=== PATIENT | female | born 1965 | race Caucasian/White ===

== ENCOUNTER 2018-06-02 04:30 | Emergency (ER) | payer BC ==
[2018-06-02] MEDS ORDERED: Ketorolac 10 MG Tab PO ONE (04:31)
[2018-06-02] MEDS ORDERED: Sodium Chloride 0.9% 1,000 ML IV ONE (05:08)
[2018-06-02] MEDS ORDERED: Ondansetron 4 MG/2 ML SDV IVPUSH PRN (05:10)
[2018-06-02] MEDS ORDERED: fentaNYL 100 MCG/2 ML SDV IVPUSH PRN (05:10)
--- NOTE | 2018-06-02 05:18 | EDM.PDOC ---
ED HPI GENERAL MEDICAL PROBLEM - General Chief Complaint: Abdominal Pain Stated Complaint: HAVING ABDOMINAL PAIN. Time Seen by Provider: 06/02/18 05:06 Source of Information: Reports: Patient History Limitations: Reports: No Limitations - History of Present Illness INITIAL COMMENTS - FREE TEXT/NARRATIVE: Courtney is a 52 year old female who presents to the ED with c/o severe LLQ abdominal pain. Reports pain woke her from sleep at 0245 this morning. Reports pain has been constant since but does increase with sharp pains intermittently. Reports pain is mostly in her left lower area of her abdomen, but does radiate across to the right at times. Has been a little nauseated. Denies any fever, vomiting, diarrhea, constipation, flank pain, dysuria, urgency, blood in urine. Reports had colonoscopy in 2016 which was normal. Denies any history of kidney stones, diverticulosis. Onset: Today Onset Date: 06/02/18 Onset Time: 02:45 Left Lower Abdominal Pain Score (Numeric/FACES): 9 - Related Data Allergies Allergy/AdvReac Type Severity Reaction Status Date / Time Sulfa (Sulfonamide Allergy Hives Verified 06/02/18 04:49 Antibiotics) Home Meds: Home Meds Ketorolac [Toradol] 10 mg PO Q6H PRN #20 tab 06/02/18 [Rx] Nitrofurantoin Macrocrystal [Macrodantin] 100 mg PO DAILY #7 capsule 06/02/18 [ Rx] Tamsulosin HCl [Flomax] 0.4 mg PO DAILY #14 cap.er.24h 06/02/18 [Rx] Past Medical History Cardiovascular History: Reports: High Cholesterol - Past Surgical History HEENT Surgical History: Reports: Myringotomy w Tube(s) GI Surgical History: Reports: Cholecystectomy Female Surgical History: Reports: Tubal Ligation Social & Family History - Tobacco Use Smoking Status *Q: Never Smoker Second Hand Smoke Exposure: No ED ROS GENERAL - Review of Systems Review Of Systems: See Below Constitutional: Denies: Fever, Chills, Malaise, Weakness, Fatigue Respiratory: Reports: No Symptoms. Denies: Shortness of Breath, Cough Cardiovascular: Reports: No Symptoms. Denies: Chest Pain, Lightheadedness GI/Abdominal: Reports: Abdominal Pain, Nausea. Denies: Black Stool, Bloody Stool, Constipation, Diarrhea, Vomiting : Reports: Frequency. Denies: Dysuria, Hematuria, Urgency Musculoskeletal: Denies: Back Pain Neurological: Reports: No Symptoms. Denies: Confusion, Dizziness, Headache, Numbness, Tingling, Weakness Psychiatric: Reports: No Symptoms ED EXAM, GI/ABD - Physical Exam Exam: See Below Exam Limited By: No Limitations General Appearance: Alert, WD/WN, Moderate Distress Head: Atraumatic, Normocephalic Neck: Normal Inspection, Supple, Non-Tender, Full Range of Motion Respiratory/Chest: No Respiratory Distress, Lungs Clear, Normal Breath Sounds, No Accessory Muscle Use, Chest Non-Tender Cardiovascular: Normal Peripheral Pulses, Regular Rate, Rhythm, No Edema, No Gallop, No JVD, No Murmur, No Rub GI/Abdominal Exam: Normal Bowel Sounds, Soft, No Distention, Tender (LLQ, suprapubic area). No: Guarding, Rigid, Rebound Back Exam: Normal Inspection, Full Range of Motion. No: CVA Tenderness (L), CVA Tenderness (R) Extremities: Normal Inspection, Normal Range of Motion, Non-Tender, Normal Capillary Refill, No Pedal Edema Neurological: Alert, Oriented, CN II-XII Intact, Normal Cognition, Normal Gait, Normal Reflexes, No Motor/Sensory Deficits Psychiatric: Normal Affect, Normal Mood Course - Vital Signs Last Recorded V/S: Last Vital Signs Temp 98.7 F 06/02/18 07:30 Pulse 78 06/02/18 07:30 Resp 20 06/02/18 07:30 BP 142/78 H 06/02/18 07:30 Pulse Ox 100 06/02/18 07:30 - Orders/Labs/Meds Orders: Active Orders 24 hr Category Date Time Status Abdomen Pelvis w Cont [CT] Stat Exams 06/02/18 05:44 Taken Labs: Laboratory Tests 06/02/18 06/02/18 06/02/18 Range/Units 05:05 05:05 05:05 WBC 8.8 (5.0-10.0) 10^3/uL RBC 4.78 (4.00-5.50) 10^6/uL Hgb 13.3 (12.0-16.0) g/dL Hct 40.4 (37.0-47.0) % MCV 84.5 (82.0-94.0) fL MCH 27.8 (27.0-32.0) pg MCHC 32.9 L (33.0-38.0) g/dL RDW Coeff of Brenna 14.0 (11.0-15.0) % Plt Count 193 (150-400) 10^3/uL Neut % (Auto) 66.8 (35-85) % Lymph % (Auto) 19.1 (10-55) % [place] % (Auto) 10.5 (0-16) % Eos % (Auto) 3.1 (0-5) % Baso % (Auto) 0.5 (0-3) % Neut # (Auto) 5.89 (1.80-7.00) 10^3/uL Lymph # (Auto) 1.68 (1.00-4.80) 10^3/uL [place] # (Auto) 0.92 H (0.00-0.80) 10^3/uL Eos # (Auto) 0.27 (0.00-0.45) 10^3/uL Baso # (Auto) 0.04 10^3/uL Sodium 139 (136-145) mEq/L Potassium 4.0 (3.5-5.0) mEq/L Chloride 103 (98-106) mEq/L Carbon Dioxide 27 (21-32) mmol/L BUN 18 (7-18) mg/dL Creatinine 1.0 (0.6-1.0) mg/dL Est Cr Clr Drug Dosing TNP Estimated GFR (MDRD) 58 L (>=60) mL/min Glucose 117 H D (75-99) mg/dL Calcium 8.8 (8.4-10.1) mg/dL Total Bilirubin 0.5 (0.0-1.0) mg/dL AST 18 (15-37) U/L ALT 24 (12-78) U/L Alkaline Phosphatase 83 (46-116) U/L C-Reactive Protein 1.8 H (0.2-0.8) mg/dL Total Protein 6.9 (6.4-8.2) g/dL Albumin 3.3 L (3.4-5.0) g/dL Amylase 30 (25-115) U/L Lipase 132 (73-393) U/L Urine Color Dark yellow (YELLOW) Urine Appearance Slightly cloudy (CLEAR) Urine pH 5.5 (4.5-8.0) Ur Specific [place] >= 1.030 H (1.003-1.020) Urine Protein 100 H (NEGATIVE) mg/dL Urine Glucose (UA) Negative (NEGATIVE) mg/dL Urine Ketones Negative (NEGATIVE) mg/dL Urine Occult Blood Large H (NEGATIVE) Urine Nitrite Negative (NEGATIVE) Urine Bilirubin Negative (NEGATIVE) Urine Urobilinogen 0.2 (0.2-1.0) EU/dL Ur Leukocyte Esterase Negative (NEGATIVE) Urine RBC >100 H (0-5) /HPF Urine WBC Not seen (0-5) /HPF Ur Squamous Epith Cells Few H (NOT SEEN) /HPF Urine Bacteria Occasional H (NOT SEEN) /HPF Meds: Medications Discontinued Medications Generic Name Dose Route Start Last Admin Trade Name Freq PRN Reason Stop Dose Admin Ceftriaxone Sodium 1 gm 06/02/18 11:16 06/02/18 11:33 Rocephin IVPUSH 06/02/18 11:17 1 gm ONETIME ONE Administration Fentanyl 25 mcg 06/02/18 05:10 06/02/18 05:23 Sublimaze IVPUSH 25 mcg Q6H PRN Administration Abdominal Pain Sodium Chloride 1,000 mls @ 999 mls/hr 06/02/18 05:08 06/02/18 05:18 Normal Saline IV 06/02/18 06:08 999 mls/hr .BOLUS ONE Administration Sodium Chloride Confirm 06/02/18 06:15 06/02/18 06:28 Normal Saline Administered 06/02/18 06:16 Not Given Dose 1,000 mls @ as directed .ROUTE .STK-MED ONE Sodium Chloride 1,000 mls @ 250 mls/hr 06/02/18 06:30 06/02/18 10:36 Normal Saline IV 250 mls/hr ASDIRECTED VANDA Administration Iopamidol 193 ml 06/02/18 09:18 06/02/18 09:21 Isovue-250 (51%) IVPUSH 06/02/18 09: 193 ml ONETIME ONE Administration Ketorolac Tromethamine 30 mg 06/02/18 05:46 06/02/18 06:15 Toradol IVPUSH 30 mg Q6H PRN Administration Pain Ketorolac Tromethamine 1 packet 06/02/18 11:16 06/02/18 11:42 Take Home: Ketorolac 10 Mg, 4 Tab Pack PO 06/02/18 11:17 1 packet ONETIME ONE Administration Ondansetron HCl 4 mg 06/02/18 05:10 06/02/18 05:19 Zofran IVPUSH 4 mg Q6H PRN Administration Nausea Tamsulosin HCl 0.4 mg 06/02/18 11:17 06/02/18 11:32 Flomax PO 06/02/18 11:18 0.4 mg ONETIME ONE Administration - Radiology Interpretation Free Text/Narrative:: CT reveals 3 mm calculi in distal left ureter, mild fat stranding of left kidney. Also shows thickened endometrium to 2.[address] Results Date: 06/02/18 CT Results Time: 10:00 - Re-Assessments/Exams Free Text/Narrative Re-Assessment/Exam: 06/02/18 05:44 Discussed lab results with patient. Does have significant amount of blood in her urine. She denies ever noticing blood in her urine. Does not have her menstrual cycle. No history of kidney stones. No CVA tenderness. Will proceed with CT urogram and keep in extended ED for pain management pending results. Patient agreeable. 06/02/18 10:[address] results with patient and recommendations for discharge and follow up. Patient and spouse verbalize understand and are agreeable to plan. Will discharge home. Departure - Departure Time of Disposition: 11:11 Disposition: Home, Self-Care 01 Condition: Good Clinical Impression: Calculus of distal left ureter - Discharge Information *PRESCRIPTION DRUG MONITORING PROGRAM REVIEWED*: Not Applicable *COPY OF PRESCRIPTION DRUG MONITORING REPORT IN PATIENT RUY: Not Applicable Prescriptions: Ketorolac [Toradol] 10 mg PO Q6H PRN #20 tab PRN Reason: Abdominal Pain Nitrofurantoin Macrocrystal [Macrodantin] 100 mg PO DAILY #7 capsule Tamsulosin HCl [Flomax] 0.4 mg PO DAILY #14 cap.er.24h Instructions: Kidney Stones, [id number] Referrals: PCP,None [Primary Care Provider] - Forms: ED Department Discharge Additional Instructions: Flomax daily x 14 days Nitrofurantoin daily x 7 days (prophylactic antibiotic) Toradol 1 tab every 6 hours as needed for pain. May alternate with Tylenol 1000 mg every 6 hours as needed. Rest and push fluids the next few days. Also discussed need for Pelvic US in future due to thickened endometrium. This can be done with yearly physical in August. Follow up in 2 weeks for recheck with provider of your choice. Will recheck urine at that time. Follow up sooner than that if any issues. - My Orders Last 24 Hours: My Active Orders 06/02/18 05:44 Abdomen Pelvis w Cont [CT] Stat - Assessment/Plan Last 24 Hours: My Active Orders 06/02/18 05:44 Abdomen Pelvis w Cont [CT] Stat
[2018-06-02 05:25] LABS: CHLORIDE,CL 103 mEq/L (98-106); SODIUM,NA 139 mEq/L (136-145)
[2018-06-02] MEDS ORDERED: Ketorolac 30 MG/ML SDV IVPUSH PRN (05:46)
[2018-06-02] MEDS: Sodium Chloride 0.9% 1,000 ML ONE ×2 (06:20→06:28)
[2018-06-02] MEDS: Sodium Chloride 0.9% 1,000 ML IV SCH ×2 (06:25→10:36)
[2018-06-02 08:06] VITALS: BP 142/78
[2018-06-02] MEDS ORDERED: Iopamidol 510 MG/ML 50 ML SDV IVPUSH ONE (09:18)
[2018-06-02] MEDS ORDERED: cefTRIAXone 1 GM Vial IVPUSH ONE (11:16)
[2018-06-02] MEDS ORDERED: Take Home: Ketorolac 10 MG Tab, 4 Tab Pack PO ONE (11:16)
[2018-06-02] MEDS ORDERED: Tamsulosin 0.4 MG Cap.ER PO ONE (11:17)
== END 2018-06-02 11:58 | disposition home or self-care (01) ==
LOC: CC.ED 04:30
DX: N20.1 Calculus of ureter (principal); E78.00 Pure hypercholesterolemia, unspecified; Z88.2 Allergy status to sulfonamides; Z79.899 Other long term (current) drug therapy
CPT/HCPCS: 36415; 74177; 80053; 81001; 82150; 83690; 85025; 86140; 96361; 96374; 96375; 99284-25; A9270-GY; J0696; J1885; J2405; J3010; J7030; Q9957

== ENCOUNTER 2019-07-24 14:34 | Emergency (ER) | payer BC ==
[2019-07-24 15:04] LABS: CHLORIDE,CL 104 mEq/L (98-106); SODIUM,NA 140 mEq/L (136-145)
[2019-07-24 15:07] VITALS: PULSE 94
[2019-07-24] MEDS: Pantoprazole 40 MG Vial IVPUSH SCH (15:44)
[2019-07-24] MEDS: Alum Hydrox/Mag Hydrox/Simeth 30 ML, Lidocaine 2% 15 ML PO ONE ×2 (15:44)
[2019-07-24 15:45] VITALS: BP 157/89
--- NOTE | 2019-07-24 16:04 | EDM.PDOC ---
ED HPI GENERAL MEDICAL PROBLEM - General Chief Complaint: Chest Pain Stated Complaint: cp Time Seen by Provider: 07/24/19 15:12 Source of Information: Reports: Patient History Limitations: Reports: No Limitations - History of Present Illness INITIAL COMMENTS - FREE TEXT/NARRATIVE: States that she just has not felt well. She has nausea and general overall feeling of not feeling well. She had 2:30 apppt with Trena today and on the way in was feeling worse so came to the ER instead. Has pain in the mid epigastric area up into the chest. Has had some heartburn with it. has history of reflux also. Onset: Gradual Location: Reports: Chest, Abdomen Quality: Reports: Dull - Related Data Allergies Allergy/AdvReac Type Severity Reaction Status Date / Time Sulfa (Sulfonamide Allergy Hives Verified 07/24/19 14:36 Antibiotics) Home Meds: Home Meds Megestrol [Megace] 20 mg PO DAILY 07/24/19 [History] Past Medical History Cardiovascular History: Reports: High Cholesterol Endocrine/Metabolic History: Reports: Other (See Below) Other Endocrine/Metabolic History: nodules for thyroid - Past Surgical History HEENT Surgical History: Reports: Myringotomy w Tube(s) GI Surgical History: Reports: Cholecystectomy Social & Family History - Tobacco Use Smoking Status *Q: Never Smoker - Caffeine Use Caffeine Use: Reports: None - Recreational Drug Use Recreational Drug Use: No ED ROS GENERAL - Review of Systems Review Of Systems: See Below Constitutional: Reports: Weight Gain. Denies: Fever, Chills, Fatigue HEENT: Reports: No Symptoms Respiratory: Reports: No Symptoms Cardiovascular: Reports: Other (saee HPI) GI/Abdominal: Reports: Nausea. Denies: Vomiting : Reports: No Symptoms Musculoskeletal: Reports: No Symptoms Skin: Reports: No Symptoms Neurological: Reports: No Symptoms ED EXAM, GI/ABD - Physical Exam Exam: See Below Exam Limited By: No Limitations General Appearance: Alert, WD/WN, No Apparent Distress Ears: Normal External Exam, Normal [place] Nose: Normal Inspection, Normal Mucosa Throat/Mouth: Normal Inspection, Normal Oropharynx Head: Atraumatic, Normocephalic Neck: Normal Inspection, Supple, Non-Tender, Full Range of Motion Respiratory/Chest: No Respiratory Distress, Lungs Clear, Normal Breath Sounds Cardiovascular: Normal Peripheral Pulses, Regular Rate, Rhythm GI/Abdominal Exam: Normal Bowel Sounds, Soft, Tender (to the midepigastric area with palpation.) Extremities: Normal Inspection, No Pedal Edema Neurological: Alert, Oriented Psychiatric: Flat Affect Skin Exam: Warm, Dry, Intact Course - Vital Signs Last Recorded V/S: Last Vital Signs Temp 97.0 F 07/24/19 14:37 Pulse 94 07/24/19 15:00 Resp 16 07/24/19 15:44 BP 157/89 H 07/24/19 15:44 Pulse Ox 96 07/24/19 15:44 - Orders/Labs/Meds Orders: Active Orders 24 hr Category Date Time Status Chest 2V [CR] Stat Exams 07/24/19 14:41 Taken Pantoprazole [ProTONIX IV] Med 07/24/19 15:30 Active 40 mg IVPUSH Q24H Medication Orders Pantoprazole Sodium (Protonix Iv) 40 mg IVPUSH Q24H VANDA Last Admin: 07/24/19 15:44 Dose: 40 mg Labs: Laboratory Tests 07/24/19 07/24/19 07/24/19 Range/Units 14:40 14:40 14:45 WBC 6.7 (5.0-10.0) 10^3/uL RBC 5.47 (4.00-5.50) 10^6/uL Hgb 15.3 (12.0-16.0) g/dL Hct 45.5 (37.0-47.0) % MCV 83.2 (82.0-94.0) fL MCH 28.0 (27.0-32.0) pg MCHC 33.6 (33.0-38.0) g/dL RDW Coeff of Brenna 15.2 H (11.0-15.0) % Plt Count 206 (150-400) 10^3/uL Neut % (Auto) 59.0 (35-85) % Lymph % (Auto) 29.0 (10-55) % [place] % (Auto) 10.6 (0-16) % Eos % (Auto) 1.0 (0-5) % Baso % (Auto) 0.4 (0-3) % Neut # (Auto) 3.96 (1.80-7.00) 10^3/uL Lymph # (Auto) 1.95 (1.00-4.80) 10^3/uL [place] # (Auto) 0.71 (0.00-0.80) 10^3/uL Eos # (Auto) 0.07 (0.00-0.45) 10^3/uL Baso # (Auto) 0.03 10^3/uL PT 11.1 (9.7-12.3) SEC INR 1.10 (0.92-1.18) Sodium 140 (136-145) mEq/L Potassium 3.6 (3.5-5.0) mEq/L Chloride 104 (98-106) mEq/L Carbon Dioxide 24 (21-32) mmol/L BUN 15 (7-18) mg/dL Creatinine 1.2 H (0.6-1.0) mg/dL Est Cr Clr Drug Dosing 48.79 mL/min Estimated GFR (MDRD) 47 L (>=60) mL/min Glucose 120 H (75-99) mg/dL Calcium 9.4 (8.4-10.1) mg/dL Total Bilirubin 0.8 (0.0-1.0) mg/dL AST 23 (15-37) U/L ALT 37 (12-78) U/L Alkaline Phosphatase 77 (46-116) U/L Lactate Dehydrogenase 259 H (100-190) U/L Creatine Kinase 49 (21-215) U/L Troponin I < 0.017 (0.00-0.06) ng/mL C-Reactive Protein 0.5 (0.2-0.8) mg/dL Total Protein 7.8 (6.4-8.2) g/dL Albumin 3.8 (3.4-5.0) g/dL Lipase 156 (73-393) U/L Urine Color (YELLOW) Urine Appearance (CLEAR) Urine pH (4.5-8.0) Ur Specific [place] (1.003-1.020) Urine Protein (NEGATIVE) mg/dL Urine Glucose (UA) (NEGATIVE) mg/dL Urine Ketones (NEGATIVE) mg/dL Urine Occult Blood (NEGATIVE) Urine Nitrite (NEGATIVE) Urine Bilirubin (NEGATIVE) Urine Urobilinogen (0.2-1.0) EU/dL Ur Leukocyte Esterase (NEGATIVE) Urine RBC (0-5) /HPF Urine WBC (0-5) /HPF Ur Squamous Epith Cells (NOT SEEN) /HPF 05/21/20 Range/Units 14:52 WBC (5.0-10.0) 10^3/uL RBC (4.00-5.50) 10^6/uL Hgb (12.0-16.0) g/dL Hct (37.0-47.0) % MCV (82.0-94.0) fL MCH (27.0-32.0) pg MCHC (33.0-38.0) g/dL RDW Coeff of Brenna (11.0-15.0) % Plt Count (150-400) 10^3/uL Neut % (Auto) (35-85) % Lymph % (Auto) (10-55) % [place] % (Auto) (0-16) % Eos % (Auto) (0-5) % Baso % (Auto) (0-3) % Neut # (Auto) (1.80-7.00) 10^3/uL Lymph # (Auto) (1.00-4.80) 10^3/uL [place] # (Auto) (0.00-0.80) 10^3/uL Eos # (Auto) (0.00-0.45) 10^3/uL Baso # (Auto) 10^3/uL PT (9.7-12.3) SEC INR (0.92-1.18) Sodium (136-145) mEq/L Potassium (3.5-5.0) mEq/L Chloride (98-106) mEq/L Carbon Dioxide (21-32) mmol/L BUN (7-18) mg/dL Creatinine (0.6-1.0) mg/dL Est Cr Clr Drug Dosing mL/min Estimated GFR (MDRD) (>=60) mL/min Glucose (75-99) mg/dL Calcium (8.4-10.1) mg/dL Total Bilirubin (0.0-1.0) mg/dL AST (15-37) U/L ALT (12-78) U/L Alkaline Phosphatase (46-116) U/L Lactate Dehydrogenase (100-190) U/L Creatine Kinase (21-215) U/L Troponin I (0.00-0.06) ng/mL C-Reactive Protein (0.2-0.8) mg/dL Total Protein (6.4-8.2) g/dL Albumin (3.4-5.0) g/dL Lipase (73-393) U/L Urine Color Yellow (YELLOW) Urine Appearance Clear (CLEAR) Urine pH 7.0 (4.5-8.0) Ur Specific [place] 1.020 (1.003-1.020) Urine Protein Negative (NEGATIVE) mg/dL Urine Glucose (UA) Negative (NEGATIVE) mg/dL Urine Ketones Negative (NEGATIVE) mg/dL Urine Occult Blood Moderate H (NEGATIVE) Urine Nitrite Negative (NEGATIVE) Urine Bilirubin Negative (NEGATIVE) Urine Urobilinogen 0.2 (0.2-1.0) EU/dL Ur Leukocyte Esterase Trace H (NEGATIVE) Urine RBC 5-10 H (0-5) /HPF Urine WBC 0-5 (0-5) /HPF Ur Squamous Epith Cells Few H (NOT SEEN) /HPF Meds: Medications Generic Name Dose Route Start Last Admin Trade Name Freq PRN Reason Stop Dose Admin Pantoprazole Sodium 40 mg 07/24/19 15:30 07/24/19 15:44 Protonix Iv IVPUSH 40 mg Q24H VANDA Administration Discontinued Medications Generic Name Dose Route Start Last Admin Trade Name Freq PRN Reason Stop Dose Admin Al Hydroxide/Mg Hydroxide 30 0 ml 07/24/19 15:30 07/24/19 15:44 ml/ Lidocaine HCl 15 ml PO 07/24/19 15:31 45 ml ONETIME ONE Administration Departure - Departure Time of Disposition: 16:01 Disposition: Home, Self-Care 01 Condition: Good Clinical Impression: Gastritis Qualifiers: Gastritis type: superficial Chronicity: acute Gastritis bleeding: without bleeding Qualified Code(s): K29.00 - Acute gastritis without bleeding - Discharge Information *PRESCRIPTION DRUG MONITORING PROGRAM REVIEWED*: Not Applicable *COPY OF PRESCRIPTION DRUG MONITORING REPORT IN PATIENT RUY: Not Applicable Referrals: Jose E Velazquez MD [Primary Care Provider] - Forms: ED Department Discharge Additional Instructions: start protonix 40 mg daily for the next 6 weeks and then can try to stop. If nausea and upset stomach returns contact primary care provider and may need to stay on the med. avoid spicy foods Follow up if symptoms not improving Sepsis Event Note - Evaluation Sepsis Screening Result: No Definite Risk - Focused Exam Vital Signs: Vital Signs Temp Pulse Resp BP Pulse Ox 07/24/19 15:44 16 157/89 H 96 07/24/19 15:15 16 154/80 H 98 07/24/19 15:00 94 18 154/89 H 96 07/24/19 14:43 18 156/76 H 100 07/24/19 14:37 97.0 F 73 16 170/76 H 100 Date Exam was Performed: 07/24/19 Time Exam was Performed: 16:04 - Problem List & Annotations (1) Gastritis SNOMED Code(s): 5430755 Code(s): K29.70 - GASTRITIS, UNSPECIFIED, WITHOUT BLEEDING Status: Acute Priority: High Current Visit: Yes Qualifiers: Gastritis type: superficial Chronicity: acute Gastritis bleeding: without bleeding Qualified Code(s): K29.00 - Acute gastritis without bleeding - Problem List Review Problem List Initiated/Reviewed/Updated: Yes - My Orders Last 24 Hours: My Active Orders 07/24/19 14:41 Chest 2V [CR] Stat 07/24/19 15:30 Pantoprazole [ProTONIX IV] 40 mg IVPUSH Q24H - Assessment/Plan Last 24 Hours: My Active Orders 07/24/19 14:41 Chest 2V [CR] Stat 07/24/19 15:30 Pantoprazole [ProTONIX IV] 40 mg IVPUSH Q24H
== END 2019-07-24 16:15 | disposition home or self-care (01) ==
LOC: CC.ED 14:34
DX: K29.00 Acute gastritis without bleeding (principal); Z88.2 Allergy status to sulfonamides
CPT/HCPCS: 36415; 71046; 80053; 81001; 82550; 83615; 83690; 84484; 85025; 85610; 86140; 93005; 96374; 99285-25; A9270-GY; C9113